=== PATIENT | male | born 1950 | race Caucasian/White ===

== ENCOUNTER 2017-05-07 19:44 | Emergency (ER) | payer MEDICARE, OTHER ==
[~2017-05-07] VITALS: Ht 170.2 cm; Wt 102.0 kg
--- NOTE | ~2017-05-07 | CR63 ---
[facility] A Service of [facility] & [facility] RADIOLOGY TEXT RESULTS PATIENT: DEBORA RINCON LOCATION: SED : 46 UNIT #: [id number] AGE: [address]: Denny Barajas MD SEX: M ORDER DR: [id number] [place] [id number] E MR#: [id number] Acc #: [id number] NAME: DEBORA RINCON : 1950 SEX: M STUDY DATE/TIME: 05/07/2017 20:31 UNIT: SED ROOM: STUDY DESCRIPTION: CR Chest 2 View Attending Physician: Denny Barajas M.D. Ordering Physician: Denny Barajas M.D. Primary Care Physician: Barrera Singh M.D. MEDICAL IMAGING REPORT This report is preliminary unless electronic signature is present. EXAM PA and lateral chest HISTORY Cough for 2 weeks. Wheezing. FINDINGS Two views of the chest demonstrate the cardiac size and pulmonary vascularity are normal. No infiltrates or effusions. Minimal right upper thoracic curve. IMPRESSION No active disease. Dictated by... Magdi Lubin M.D. THIS IS AN ELECTRONICALLY VERIFIED REPORT Magdi Lubin M.D. at 05/08/2017 6:26 PM DFL/psc TD: 05/08/2017 02:51 JOB #: [id number] MEDICAL IMAGING REPORT Page 1 of 1
--- NOTE | ~2017-05-07 | EKG ---
PATIENT: DEBORA RINCON UNIT #: [id number] Ventricular Rate: 79 BPM Atrial Rate: 79 BPM P-R Interval: 194 ms QRS Duration: 90 ms Q-T Interval: 382 ms QTC Calculation(Bezet): 438 ms P [place]: 59 degrees Calculated R [place]: -3 degrees Calculated T [place]: 46 degrees Diagnosis Line: Normal sinus rhythm Diagnosis Line: Cannot rule out Inferior infarct Otherwise normal Diagnosis Line: ECG Diagnosis Line: No previous ECGs available Diagnosis Line: Reconfirmed by NATHANIEL LAMAS MD ([id number]) on Diagnosis Line: 05/10/2017 4:37:03 PM INTERPRETING MD: ADAMS LAWSON
--- NOTE | ~2017-05-07 | EKG ---
PATIENT: DEBORA RINCON UNIT #: [id number] Ventricular Rate: 79 BPM Atrial Rate: 79 BPM P-R Interval: 194 ms QRS Duration: 90 ms Q-T Interval: 382 ms QTC Calculation(Bezet): 438 ms P [place]: 59 degrees Calculated R [place]: -3 degrees Calculated T [place]: 46 degrees Diagnosis Line: Normal sinus rhythm Diagnosis Line: Normal ECG Diagnosis Line: No previous ECGs available Diagnosis Line: Confirmed by NATHANIEL LAMAS MD ([id number]) on 05/10/2017 Diagnosis Line: 4:36:40 PM INTERPRETING MD: ADAMS LAWSON
[~2017-05-07 19:44] MED LIST: ALBUTEROL17 GM; ALBUTEROL17 GM INH; FLONASE 0.05% N16 G1; LEVAQUIN750 M1 PO; LEVEMIR; METFORMIN HCL750 MG; TESSALON PERLES PO; ZYRTEC5 MG
[2017-05-07] MEDS ORDERED: GLIPIZIDE (19:53)
[2017-05-07 20:40] LABS: BASOPHIL# 0.1 X10e3 (0-0.3); BASOPHIL% 0.6 % (0-2.5); EOSINOPHIL# 0.8 X10e3 (0-0.7); EOSINOPHIL% 9.4 % (0.0-7.0); HEMATOCRIT 40.7 % (38.0-50.0); HEMOGLOBIN 13.7 gm/dL (13.0-16.0); LYMPHOCYTE# 2.2 X10e3 (1.0-3.5); LYMPHOCYTE% 24.7 % (17.0-45.0); MEAN CORPUSCULAR HEMOGLOBIN 29.3 PG (28-34); MEAN CORPUSCULAR HGB CONC 33.7 g/dL (30-36); MEAN PLATELET VOLUME 8.5 FL (6.5-11.5); MONOCYTE# 0.7 X10e3 (0-1.0); MONOCYTE% 7.3 % (3.0-12.0); NEUTROPHIL# 5.2 X10e3 (1.5-7.1); PLATELET COUNT 226 X10e3 (140-420); RED BLOOD COUNT 4.68 X10e (3.90-5.60); RED CELL DISTRIBUTION WIDTH 13.6 % (11.0-15.5)
[2017-05-07 20:44] LABS: DIFF IND NO
[2017-05-07 20:59] LABS: CALCIUM SERUM 9.4 mg/dL (8.4-10.2); GLOM FILT RATE Estimated 76.5 mL/min (>60); POTASSIUM 4.1 mmol/L (3.5-5.1)
[2017-05-08 13:20] LABS: POC - CKMB 16.3 ng/mL (0.0-7.9); POC - TROPONIN <0.05 ng/mL (<=0.05)
[2017-05-08 13:22] LABS: POC - CKMB 13.7 ng/mL (0.0-7.9); POC - TROPONIN <0.05 ng/mL (<=0.05)
== END 2017-05-07 23:52 | disposition home or self-care (01) ==
LOC: SED 19:44
PROVIDERS: Emergency Medicine
DX: J20.9 Acute bronchitis, unspecified (principal); E11.9 Type 2 diabetes mellitus without complications; Z79.4 Long term (current) use of insulin
CPT/HCPCS: 36415; 71020; 80048; 82550; 82553; 83874; 84484; 85025; 93005; 94640; 99284